=== PATIENT | female | born 1985 | race Caucasian/White ===

== ENCOUNTER 2017-08-28 12:53 | Emergency (ER) | payer MEDICAID ==
[2017-08-28 12:59] VITALS: BP 123/95; PULSE 98; RESP 16; TEMP 97.7; O2SAT 99
--- NOTE | 2017-08-28 13:11 | EDPHY ---
HPI/HX/ROS/PE/MDM Narrative: CHIEF COMPLAINT: Medication refill HPI: The patient is a 31-year-old female with a history of attention deficit hyperactivity disorder. She recently moved back from [facility] and has run out of her Adderall prescription. She states she has an appointment with the primary care provider in 2 weeks but cannot get 1 sooner. She requests a 2 week supply of her Adderall to get her through until that appointment. She is able to provide me a receipt of her last prescription which appears entirely appropriate. She denies any symptoms. REVIEW OF SYSTEMS: Aside from elements discussed in the HPI, a comprehensive 10-point review of systems was reviewed and is negative. PMH: Attention deficit hyperactivity disorder. 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 PHYSICAL EXAM: General:Patient is alert, in no acute distress. Extremities: Normal appearance. Full range of motion. Neuro: Oriented x3. Normal motor function. Normal sensory function. MDM: This is a simple medication refill. Patient was prescribed a 2 week course of Adderall. General Time Seen by Provider: 08/28/17 13:01 Initial Vital Signs: Initial Vital Signs Temperature (C) 36.5 C 08/28/17 12:56 Heart Rate 98 08/28/17 12:56 Respiratory Rate 16 08/28/17 12:56 Blood Pressure 123/95 H 08/28/17 12:56 O2 Sat (%) 99 08/28/17 12:56 O2 Delivery Mode Room Air Allergies/Adverse Reactions: No Known Allergies Allergy (Unverified 08/28/17 12:56) Home Medications: Medication Instructions Recorded Adderall 10 MG (*) 08/28/17 Amphet Asp/Amphet/D-Amphet 20 mg PO DAILY #14 tablet 08/28/17 [Amphetamine Salts 20 mg Tablet] Departure - Departure Disposition: Home, Routine, Self-Care Clinical Impression: Medication refill Condition: Good Instructions: Medicine Refill (ED) Additional Instructions: 1. Follow up with your primary care provider for further concerns. Referrals: NONE *PRIMARY CARE P,. [Primary Care Provider] - As per Instructions Ely Cortes DO [Doctor of Osteopathy] - As per Instructions Prescriptions: Amphet Asp/Amphet/D-Amphet [Amphetamine Salts 20 mg Tablet] 20 mg PO DAILY #14 tablet
== END 2017-08-28 13:21 | disposition home or self-care (01) ==
DX: Z76.0 Encounter for issue of repeat prescription (principal)

== ENCOUNTER 2017-09-16 13:34 | Emergency (ER) | payer MEDICAID ==
[2017-09-16 13:40] VITALS: BP 108/90; PULSE 80; RESP 17; TEMP 98.1; O2SAT 99
--- NOTE | 2017-09-16 13:58 | EDPHY ---
H & P Stated Complaint: we refilled adderal rx 08/28 /she requests pills to cover this weekend Time Seen by Provider: 09/16/17 13:41 HPI/ROS: CHIEF COMPLAINT: Medication refill HISTORY OF PRESENT ILLNESS: The patient is a 31-year-old female who comes to the emergency department requesting a refill of her Adderall. She was seen here on the of this month for the same. She is also here with her sister who is on a M1 hold for bipolar. She states that her new doctors trying to get records from her old doctor and will not prescribe her Adderall until she does. She tells me that her old doctor is Dr. Cooley in [place]. The patient states that she is supposed to have the records faxed on Wednesday but is here requesting medication to get her through the weekend. She typically takes 20 mg per day. She is asymptomatic. REVIEW OF SYSTEMS: Constitutional: denies: chills, fever, recent illness, recent injury EENTM: denies: blurred vision, double vision, nose congestion Respiratory: denies: cough, shortness of breath Cardiac: denies: chest pain, irregular heart rate, lightheadedness, palpitations Gastrointestinal/Abdominal: denies: abdominal pain, diarrhea, nausea, vomiting, blood streaked stools Genitourinary: denies: dysuria, frequency, hematuria, pain Musculoskeletal: denies: joint pain, muscle pain Skin: denies: lesions, rash, jaundice, bruising Neurological: denies: headache, numbness, paresthesia, tingling, dizziness, weakness Hematologic/Lymphatic: denies: blood clots, easy bleeding, easy bruising Immunologic/allergic: denies: HIV/AIDS, transplant EXAM: GENERAL: Well-appearing, well-nourished and in no acute distress. HEAD: Atraumatic, normocephalic. EYES: Pupils equal round and reactive to light, extraocular movements intact, sclera anicteric, conjunctiva are normal. ENT: TMs normal, nares patent, oropharynx clear without exudates. Moist mucous membranes. NECK: Normal range of motion, supple without lymphadenopathy or JVD. LUNGS: Breath sounds clear to auscultation bilaterally and equal. No wheezes rales or rhonchi. HEART: Regular rate and rhythm without murmurs, rubs or gallops. ABDOMEN: Soft, nontender, normoactive bowel sounds. No guarding, no rebound. No masses appreciated. BACK: No CVA tenderness, no spinal tenderness, step-offs or deformities EXTREMITIES: Normal range of motion, no pitting or edema. No clubbing or cyanosis. NEUROLOGICAL: Cranial nerves II through XII grossly intact. Normal speech, normal gait. 5/5 strength, normal movement in all extremities, normal sensation PSYCH: Normal mood, normal affect. SKIN: Warm, dry, normal turgor, no visible rashes or lesions. Source: Patient Exam Limitations: No limitations - Personal History LMP (Females 10-55): Now Current Tetanus/Diphtheria Vaccine: Yes - Medical/Surgical History Hx Asthma: No Hx Chronic Respiratory Disease: No Hx Diabetes: No Hx Cardiac Disease: No Hx Renal Disease: No Hx Cirrhosis: No Hx Alcoholism: No Hx HIV/AIDS: No Hx Splenectomy or Spleen Trauma: No Other PMH: addh - Family History Significant Family History: No pertinent family hx - Social History Smoking Status: Never smoked Alcohol Use: Sober Drug Use: None Constitutional: Initial Vital Signs Temperature (C) 36.7 C 09/16/17 13:37 Heart Rate 80 09/16/17 13:37 Respiratory Rate 17 09/16/17 13:37 Blood Pressure 108/90 H 09/16/17 13:37 O2 Sat (%) 99 09/16/17 13:37 O2 Delivery Mode Room Air Allergies/Adverse Reactions: No Known Allergies Allergy (Verified 09/16/17 13:37) Home Medications: Medication Instructions Recorded Adderall 10 MG (*) 08/28/17 Amphet Asp/Amphet/D-Amphet 20 mg PO DAILY #14 tablet 08/28/17 [Amphetamine Salts 20 mg Tablet] Medical Decision Making ED Course/Re-evaluation: The patient is asymptomatic. I reviewed her prescription history on prescription drug monitoring program. The patient has not seen Dr. Cooley since April. Since then she has seen 3 other physicians. Notably she was prescribed 51 tablets in May 135 tablets in June and then 14 here he in August. I told her that I did not feel comfortable giving her another prescription. I am concerned about abuse. The patient understands. She will follow up with her primary to see if she can get the prescription from the any sooner. Differential Diagnosis: Partial list of the Differential diagnosis considered include but were not limited to; medication refill, substance abuse, attention deficit hyperactivity disorder and although unlikely based on the history and physical exam, I also considered anxiety, depression. Departure - Departure Disposition: Home, Routine, Self-Care Clinical Impression: Medication refill Condition: Fair Instructions: Medicine Refill (ED) Referrals: NONE *PRIMARY CARE P,. [Primary Care Provider] - 1-2 days without fail
== END 2017-09-16 14:01 | disposition home or self-care (01) ==
DX: Z76.0 Encounter for issue of repeat prescription (principal)